=== PATIENT | female | born 1990 | race Caucasian/White ===

== ENCOUNTER 2018-07-20 12:07 | Outpatient (CLI) | payer OTHER ==
[2018-07-28] MEDS ORDERED: PHENERGAN25 MG PO (03:19)
[2018-07-28] MEDS ORDERED: ZANTAC300 MG PO (03:19)
== END 2018-07-20 17:00 | disposition home or self-care (01) ==
LOC: SONOGRAMA 12:07
DX: Z34.01 Encounter for supervision of normal first pregnancy, first trimester (principal)

== ENCOUNTER → 2018-07-26 | Outpatient (CLI) | payer OTHER ==
[~2018-07-26] MED LIST: PHENERGAN25 MG PO; ZANTAC300 MG PO
== END | disposition home or self-care (01) ==
LOC: SONOGRAMA 11:48
DX: Z34.00 Encounter for supervision of normal first pregnancy, unspecified trimester (principal); O02.1 Missed abortion

== ENCOUNTER → 2018-07-27 | Emergency (ER) | payer OTHER ==
[~2018-07-27] VITALS: Ht 162.6 cm; Wt 78.9 kg
== END | disposition home or self-care (01) ==
LOC: ER 21:25
DX: O02.1 Missed abortion (principal); R11.11 Vomiting without nausea; N39.0 Urinary tract infection, site not specified

== ENCOUNTER 2018-07-28 09:06 | Day surgery (SDC) | payer OTHER ==
[~2018-07-28] VITALS: Ht 162.6 cm; Wt 78.9 kg
== END 2018-07-28 20:10 | disposition home or self-care (01) ==
LOC: ER 09:06 → CIR.AMB 09:26
DX: O02.1 Missed abortion (principal); Z3A.08 8 weeks gestation of pregnancy